=== PATIENT | male | born 1985 | race Caucasian/White ===

== ENCOUNTER 2017-02-21 09:10 | Emergency (ER) | payer OTHER ==
[~2017-02-21] VITALS: Ht 188 cm; Wt 118.2 kg
[2017-02-21 09:12] VITALS: TEMP 99.2
[2017-02-21 09:58] LABS: BASO % 0.2 % (0.0-2.0); EOS # 0.1 (0.0-0.7); EOS % 1.5 % (0-4.0); GRAN # 4.5 (1.4-6.5); GRAN % 67.2 % (42.2-75.2); HEMATOCRIT 41.8 % (42.0-52.0); HEMOGLOBIN 14.6 g/dl (13.5-18.0); LYMPH # 1.4 (1.2-3.4); LYMPH % 20.6 % (20.0-51.0); MEAN CELL VOLUME 87 fl (80.0-100.0); MEAN CORPUSCULAR HEMOGLOBIN 31 pg (27.0-31.0); MEAN CORPUSCULAR HGB CONC 35 g/dl (33.0-37.0); MEAN PLATELET VOLUME 10.5 fl (7.4-10.4); MONO # 0.7 (0.1-0.6); MONO % 10.3 % (1.7-9.3); PLATELET COUNT 146 K/mm3 (130-400); RED BLOOD COUNT 4.79 M/mm3 (4.20-5.60); WHITE BLOOD COUNT 6.6 K/mm3 (4.8-10.8)
[2017-02-21 10:04] LABS: ADJUSTED CALCIUM 8.6 mg/dL (8.4-10.2); ALANINE AMINOTRANSFERASE 55 U/L (21-72); ALBUMIN 4.7 gm/dL (3.5-5.0); ALKALINE PHOSPHATASE 67 U/L (50-136); ANION GAP 14 mmol/L (7-16); BILIRUBIN,TOTAL 0.9 mg/dL (0.0-1.0); BLOOD UREA NITROGEN 14 mg/dL (9-20); CALCIUM 9.2 mg/dL (8.4-10.2); CARBON DIOXIDE 24 mmol/L (22-30); CHLORIDE 104 mmol/L (98-107); CREATININE, serum 0.85 mg/dL (0.66-1.25); GLUCOSE 96 mg/dL (74-106); POTASSIUM 3.9 mmol/L (3.4-5.0); SODIUM 142 mmol/L (137-145)
[2017-02-21 10:17] LABS: TROPONIN-I < 0.012 ng/mL (0.000-0.034)
[2017-02-21 12:34] VITALS: BP 121/74; PULSE 61
== END 2017-02-21 13:08 | disposition home or self-care (01) ==
LOC: COL.ER 09:10
PROVIDERS: Physician Assistant
DX: R00.2 Palpitations (principal)

== ENCOUNTER → 2017-03-06 | Outpatient (CLI) | payer OTHER | LOC: COL.VAS 09:47 | DX: N45.2 Orchitis (principal) ==

== ENCOUNTER → 2017-03-09 | Outpatient (CLI) | payer OTHER | LOC: ZCOL.LAB 10:03 | DX: R00.2 Palpitations (principal); R61 Generalized hyperhidrosis ==

== ENCOUNTER → 2017-03-24 | Outpatient (CLI) | payer OTHER ==
[~2017-03-24] MED LIST: BYSTOLIC10 MG PO; CATAPRES 0.1MG0.1 MG PO; CIPRO 500MG TA500 MG PO; HCTZ12.5TAB PO; VITAMIN D 50,1.25 MG PO
== END ==
LOC: COL.LAB 09:16
DX: I20.9 Angina pectoris, unspecified (principal)

== ENCOUNTER → 2017-03-24 | Outpatient (CLI) | payer OTHER | LOC: COL.RAD 12:31 | DX: I71.01 Dissection of thoracic aorta (principal) | CPT/HCPCS: Q9967 ==

== ENCOUNTER 2017-03-28 13:37 | Outpatient (CLI) | payer OTHER ==
[2017-03-28] VITALS (13 sets, daily range): BP systolic 114–173; BP diastolic 66–134; PULSE 58–93
[~2017-03-28] VITALS: Ht 188 cm; Wt 118.2 kg
[2017-03-28] MEDS ORDERED: VITAMIN D 50,1.25 MG PO (14:38)
[2017-03-28] MEDS ORDERED: CIPRO 500MG TA500 MG PO (14:39)
[2017-03-28] MEDS ORDERED: BYSTOLIC10 MG PO (14:39)
[2017-03-28] MEDS ORDERED: HCTZ12.5TAB PO (14:40)
[2017-03-28] MEDS ORDERED: CATAPRES 0.1MG0.1 MG PO (14:41)
[2017-03-28 14:44] LABS: HEMATOCRIT 40.4 % (42.0-52.0); HEMOGLOBIN 14.1 g/dl (13.5-18.0); INR 1.2 (0.8-3.0); MEAN CELL VOLUME 87 fl (80.0-100.0); MEAN CORPUSCULAR HEMOGLOBIN 30 pg (27.0-31.0); MEAN CORPUSCULAR HGB CONC 35 g/dl (33.0-37.0); MEAN PLATELET VOLUME 10.6 fl (7.4-10.4); PLATELET COUNT 175 K/mm3 (130-400); PROTHROMBIN TIME 12.8 SECONDS (9.7-12.8); RED BLOOD COUNT 4.67 M/mm3 (4.20-5.60); REDCELL DISTRIBUTION WIDTH-CV 12.4 % (11.5-14.5); WHITE BLOOD COUNT 7.2 K/mm3 (4.8-10.8)
[2017-03-28 14:53] LABS: CALCIUM 9.5 mg/dL (8.4-10.2); CREATININE, serum 0.9 mg/dL (0.66-1.25); POTASSIUM 3.7 mmol/L (3.4-5.0)
== END 2017-03-28 17:15 | disposition home or self-care (01) ==
LOC: COL.RAD 13:37
PROVIDERS: Internal Medicine Interventional Cardiology
DX: R06.02 Shortness of breath (principal); Q23.1 Congenital insufficiency of aortic valve; M79.605 Pain in left leg; M79.604 Pain in right leg; I10 Essential (primary) hypertension
CPT/HCPCS: J2250; J3010

== ENCOUNTER → 2017-03-29 | Outpatient (CLI) | payer OTHER ==
[2017-03-29 08:27] LABS: ARTERIAL BLD GAS TCO2 CT 19.9; ARTERIAL BLOOD GAS BASE EXCESS -1.9 (-2-2); ARTERIAL BLOOD GAS HCO3 19.1 meq/L (22-26); ARTERIAL BLOOD GAS PHT 7.51 C (7.35-7.45); ARTERIAL BLOOD GAS PO2 111.6 mmHg (80-100); ARTERIAL BLOOD GAS PO2T 111.6 (80-100); ARTERIAL BLOOD GAS pH 7.51 (7.35-7.45)
[2017-03-29 08:30] LABS: ALLEN TEST YES; ALLENS TEST RESULT PASS; ATS? YES
== END ==
LOC: COL.PUL 07:41
PROVIDERS: Internal Medicine Interventional Cardiology
DX: I10 Essential (primary) hypertension (principal); I15.9 Secondary hypertension, unspecified

== ENCOUNTER → 2017-05-11 | Outpatient (CLI) | payer OTHER | LOC: COL.RAD 07:36 | DX: Z01.89 Encounter for other specified special examinations (principal) ==

== ENCOUNTER 2019-05-21 08:35 | Emergency (ER) | payer OTHER ==
[~2019-05-21] VITALS: Ht 188 cm; Wt 127.3 kg
[2019-05-21 08:42] VITALS: TEMP 97.3
[2019-05-21] MEDS ORDERED: LEXAPRO 10MG10 MG PO (08:57)
[2019-05-21] MEDS ORDERED: TOPROL XL100 MG PO (08:58)
[2019-05-21] MEDS ORDERED: PRINIVIL5 MG PO (08:58)
[2019-05-21 09:55] LABS: CALCIUM 9.9 mg/dL (8.4-10.2); CREATININE, serum 1.1 (0.66-1.25); POTASSIUM 3.8 mmol/L (3.4-5.0)
[2019-05-21 10:08] LABS: BASO % 0.2 % (0.0-2.0); EOS # 0.1 (0.0-0.7); EOS % 0.8 % (0-4.0); GRAN # 10.2 (1.4-6.5); GRAN % 72.1 % (42.2-75.2); HEMATOCRIT 44.8 % (42.0-52.0); HEMOGLOBIN 15.6 g/dl (13.5-18.0); LYMPH # 2.4 (1.2-3.4); LYMPH % 16.9 % (20.0-51.0); MEAN CELL VOLUME 87 fl (80.0-100.0); MEAN CORPUSCULAR HEMOGLOBIN 30 pg (27.0-31.0); MEAN CORPUSCULAR HGB CONC 35 g/dl (33.0-37.0); MEAN PLATELET VOLUME 10.6 fl (7.4-10.4); MONO # 1.4 (0.1-0.6); MONO % 9.6 % (1.7-9.3); PLATELET COUNT 193 K/mm3 (130-400); RED BLOOD COUNT 5.17 M/mm3 (4.20-5.60); REDCELL DISTRIBUTION WIDTH-CV 12.5 % (11.5-14.5)
[2019-05-21] MEDS ORDERED: TUSS PO (11:01)
[2019-05-21] MEDS ORDERED: MEDROL 4MG DOSPA4 MG PO (11:01)
[2019-05-21] MEDS ORDERED: AMOXICILLIN 8751 TAB PO (11:01)
[2019-05-21 11:20] VITALS: BP 132/84; PULSE 81
== END 2019-05-21 11:30 | disposition home or self-care (01) ==
LOC: COL.ER 08:35
PROVIDERS: Emergency Medicine
DX: J02.9 Acute pharyngitis, unspecified (principal)
CPT/HCPCS: J0696; J1100; J1885; J7030